=== PATIENT | male | born 1945 | race Caucasian/White ===

== ENCOUNTER 2017-04-15 18:24 | Inpatient (IN) | payer OTHER ==
[~2017-04-15] VITALS: Ht 180.3 cm; Wt 83.4 kg
[2017-04-15] VITALS (18 sets, daily range): BP systolic 120–162; BP diastolic 65–119
--- NOTE | ~2017-04-15 | S ---
[facility] [place] [address] SURGICAL PATH RPT PROCEDURE Name: PHILIP CALDERON GERMANIA Room #: 237-P ADM IN M.R.#: [id number] Admission: 04/15/17 Date of : 47 Discharge: Report #: [id number] Path Case #: [id number] PATHOLOGY REPORT COLLECTION DATE: 04/16/2017 RECEIVED DATE: 04/16/2017 SUBMITTING PHYS: Dr. Rickie Lazo OTHER PHYS: Dr. Haresh Scruggs SPECIMEN(S) RECEIVED: A.Gastritis * * * * * * * * * * * * FINAL DIAGNOSIS: Gastric mucosa, gastritis, rule out H. pylori, endoscopic biopsy: - Mild reactive gastropathy. - Negative for intestinal metaplasia or atrophy. - Negative for Helicobacter pylori. (IUV:liset; 04/19/2017) COMMENT: Well-controlled Helicobacter pylori immunohistochemical stain performed on block A1 - Negative. PATHOLOGIST: Cassidy Vides M.D. REPORT ELECTRONICALLY SIGNED BY: Cassidy Vides M.D. DATE/TIME: 04/19/2017 14:43 * * * * * * * * * * * * GROSS PATHOLOGY: Received in formalin labeled "Philip Calderon Germania, gastritis, rule out H. pylori" and consists of 2 thibodeaux-pink mucosal biopsies each averaging 0.5 cm. There are entirely submitted as A1. (ZACK; 04/16/2017) CLINICAL HISTORY: Upper GI bleed, anemia, duodenitis, esophagitis INITIAL CPT CODE(S): A; 38502, 19226 Professional services performed by [facility] at [facility] [address], [place] [address] Technical services performed by [facility] at [address] [place] [address] [place] [address] SURGICAL PATH RPT PROCEDURE Name: PHILIP CALDERON GERMANIA Room #: 237-P ADM IN M.R.#: [id number] Admission: 04/15/17 Date of : 47 Discharge: Report #: [id number] Path Case #: [id number] [place] [address]. [facility] [address] [address] PHONE: [phone] DIRECTOR: Alan Armando M.D. * * * END OF REPORT * * *
--- NOTE | ~2017-04-15 | EKG ---
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 : 1945 Requested By: Usama Richards Order Number: [id number] MD: Shabbir Toure Measurements Intervals [place] Rate: 79 P: TN: QRS: 60 QRSD: 95 T: 255 QT: 395 QTc: 453 Interpretive Statements Sinus rhythm ST depression, consider ischemia, diffuse lds vs digoxin effect Compared to ECG 03/24/2006 07:49:10 ST (T wave) deviation now present Sinus bradycardia no longer present Electronically Signed On 04-16-2017 8:15:13 SALES AND MARKETING MANAGER by Shabbir Toure [email or web address] <ELECTRONICALLY SIGNED> By: Shabbir Toure MD, [facility] 04/16/17 0815 1824 1824 Shabbir Toure MD, [facility] /EPI
--- NOTE | ~2017-04-15 | HC ---
[facility] [place] [address] CONSULTATION Name: PHILIP CALDERON GERMANIA Room #: 205-P [facility] IN M.R.#: [id number] Admission: 04/15/17 Attend Phys: Haresh Scruggs MD, Discharge: Date of : 47 Report #: [id number] THIS REPORT FOR: //name// CC: Haresh Scruggs DATE OF SERVICE: 04/19/2017 HISTORY OF PRESENT ILLNESS: The patient is a 71-year-old white male essentially almost completely blind with retinitis pigmentosa admitted with elevated troponin and ST depression, was diagnosed with an acute TX. He has chronic kidney disease, stage 4. Course was complicated by significant anemia with nausea, vomiting, coffee-ground emesis and he underwent an EGD showing severe grade D esophagitis on 04/16/2017. He has been transfused. He feels much better this morning. He continues in the Intensive Care Unit. We are seeing him in Rehabilitation Medicine consultation. PAST MEDICAL HISTORY: Includes coronary artery bypass grafting, coronary stents in , chronic renal insufficiency, ulcerative colitis for which he had an ileostomy in the . MEDICATIONS: Please see the full medication listing. FAMILY HISTORY: Noncontributory. SOCIAL HISTORY: Lives with his , tila, can stay on one floor, two steps. He did not utilize gait aids inside the house as he could get around quite well. He will use the minh cane, which is his vision cane outside the house on occasion. is retired and can be there with him. REVIEW OF SYSTEMS: Did not offer any current complaints of chest pain, shortness of breath or abdominal discomfort. No focal extremity pain complaints. PHYSICAL EXAMINATION: GENERAL: A 71-year-old white male, in no obvious distress. VITAL SIGNS: Last recorded temperature 36.9, pulse 68, respirations 16, blood pressure is 104/59. NEUROLOGIC: He is alert. He is oriented. He is legally blind. Facies appeared symmetric. Functional range of motion of both upper extremities with strength grade 4 to 4-/5. DTRs are trace to 1. Lower extremities, no focal calf swelling. Strength is grade 4 to 4-/5. DTRs are trace to 1. Tone appeared to be intact. ASSESSMENT: A 71-year-old white male with the following problems: 1. Medical complexity with generalized debilitation. 2. Acute myocardial infarction. [address] [address] CONSULTATION Name: PHILIP CALDERON GERMANIA Room #: 205-P [facility] IN .R.#: [id number] Admission: 04/15/17 Attend Phys: Haresh Scruggs MD, Discharge: Date of : 47 Report #: [id number] 3. Gastrointestinal bleed with severe grade D esophagitis per EGD, 04/16/2017. 4. Blood loss anemia. 5. Acute on chronic renal failure. 6. Chronic renal insufficiency, stage 4. 7. Retinitis pigmentosa with legally blind. 8. Past ileostomy from the 1990s. 9. Coronary artery bypass grafting and prior stenting. PLAN: OT and PT evaluations are underway. He is hoping to be able to go directly home once he further medically stabilizes and moves out of the ICU. We will need to see how he does in therapies and we will be glad to follow along with you. <ELECTRONICALLY SIGNED> By: Kamar [place] MD 04/20/17 0857 1147 2331 Kamar [place] MD /PMT
--- NOTE | ~2017-04-15 | H ---
[facility] [place] [address] HISTORY AND PHYSICAL Name: PHILIP CALDERON GERMANIA Room #: 205-P [facility] IN M.R.#: [id number] Admission: 04/15/17 Attend Phys: Haresh Scruggs MD, Discharge: 04/20/17 Date of : 47 Report #: [id number] THIS REPORT FOR: //name// CC: Dr. Zainab Scruggs DATE OF SERVICE: 04/15/2017 HISTORY OF PRESENT ILLNESS: The patient is a 71-year-old male who has flown up here from [place], [place] having some equivocal troponin and some ST depression diffusely noted in inferior lateral leads. Poor historian, unfortunately has retinitis pigmentosa. He has been at home and has not sought cardiology followup it looks like since possibly 2002. He had a bypass surgery here by somebody who covered Dr. Livingston in those days who has got sick in 1993 and subsequently had stents placed in 2002. Those records are purged currently. He used to see Dr. Alfaro remotely in [place] and Dr. Lamb now, but really sees little followup. Dr. Abdi of nephrology was following him for worsening renal function. It looks like his baseline creatinine has been in the 3s and now 4.0 here with a hemoglobin of 6.3 in [place] and a troponin, which was slightly elevated. He is no longer having chest pain, but was having progressive dyspnea, shortness of breath, and weakness. Extremely pale appearing. Heparin drip has been stopped first unit of blood is being transfused. He appears to be hemodynamically stable and denies any significant chest pain at this time. The chest x-rays down in [place] showed no acute pulmonary process. HOME MEDICATIONS: Have been isosorbide dinitrate 30 b.i.d., lisinopril 5, prednisone 5, Restoril at night, doxazosin 4, citalopram 20, atorvastatin 20, baby aspirin and Aricept. PAST MEDICAL HISTORY: Positive for coronary artery disease, CABG, stents. No interventions since 2002 with a bypass in the mid . Unknown LV function. Has had limited infarcts in the past. Chronic anemia, has been on EPO, says his last EPO shot was in December. Hemoglobin a month ago was 11 and is now 6.3, so been some sort of acute blood loss. DJD. Worsening renal function, acute on chronic renal failure. For ulcerative colitis, he had a colostomy placed in 1993. SOCIAL HISTORY: He is . He has children. He is retired. LABORATORY DATA: Here at [place] is pending. Calcium 9.2. Liver function tests were normal. Total protein 5.7. Troponin was 0.094 in [place]. H and H 6.3 and 19, white count was 9. Creatinine 4.05, BUN 98, potassium 5.2. The EKG is sinus rhythm with ST depression inferolaterally, certainly looks ischemic, but no ST elevation. REVIEW OF SYSTEMS: Is really not obtainable, nobody has noticed any dark [facility] [address] [place] [address] HISTORY AND PHYSICAL Name: PHILIP CALDERON GERMANIA Room #: 205-P DIS IN M.R.#: [id number] Admission: 04/15/17 Attend Phys: Haresh Scruggs MD, Discharge: 04/20/17 Date of : 47 Report #: [id number] stools. He has a colostomy. PHYSICAL EXAMINATION: VITAL SIGNS: Blood pressure 138/82, pulse is 78. HEENT: Eyes reveal xanthelasmas. Pharynx is clear. Slightly dry mucous membranes. He is legally blind. NECK: Shows preserved upstrokes without JVD or bruits. LUNGS: Clear anteriorly. CARDIOVASCULAR: Regular rate and rhythm. S1, S2 distant. ABDOMEN: Soft. There are bowel sounds. There is a colostomy intact. EXTREMITIES: Reveal trace edema. Distal pulses were intact. NEUROLOGIC: Nonfocal. SKIN: Warm and dry without xanthoma or ulcer. He is quite pale appearing. MUSCULOSKELETAL: No gross joint deformity. ASSESSMENT: 1. Non-ST elevation myocardial infarction. 1. Acute blood loss anemia on chronic anemia. 2. Acute on chronic renal failure. 3. Coronary artery disease with prior coronary artery bypass graft and stents, 1993 bypass and 2002 stents, no records obtained. 4. Suspected ischemic cardiomyopathy. 5. Hypertension. 6. Hypercholesterolemia. RECOMMENDATIONS AND PLAN: We will admit to the Intensive Care Unit. Currently being transfused first unit of blood. He is comfortable and pain free. Heparin has been stopped. No indication to run in emergently to the catheterization lab. He is stabilized and pain free. I expect an elevation in troponin to occur. We will obtain echo Doppler, repeat EKG, serial enzymes. We will ask for nephrology consult. Continue with transfusion and IV Lasix between units. We will also add a BNP. BUN, we will repeat, his creatinine is 4. Hemoglobin is 7.01, our lab here. We will continue to follow with you. Thank you for asking me to assist in the care of this patient. <ELECTRONICALLY SIGNED> By: Haresh Scruggs MD, [facility] 04/21/17 1455 1856 32 Haresh Scruggs MD, FACC /nt
--- NOTE | ~2017-04-15 | P ---
[facility] [place] [address] PROCEDURE REPORT Name: PHILIP CALDERON GERMANIA Room #: 205-P [facility] IN M.R.#: [id number] Admission: 04/15/17 Attend Phys: Haresh Scruggs MD, Discharge: 04/20/17 Date of : 47 Report #: [id number] THIS REPORT FOR: //name// CC: Haresh Scruggs MD [facility] DATE OF SERVICE: 04/16/2017 PROCEDURE PERFORMED: Upper endoscopy with biopsies. HISTORY OF PRESENT ILLNESS: The patient is a 71-year-old male with recent abdominal pain, shortness of breath, was noted to be significantly anemic at [facility]. He has now received 3 units of packed cells. Hemoglobin at this time is 8.6. He had an episode of coffee-ground emesis with clots reportedly. No previous history of upper GI bleed. He was taking aspirin on a regular basis. Plan is for EGD. DESCRIPTION OF PROCEDURE: The risks and benefits of the procedure were explained to the patient, those risks including but not limited to bleeding, perforation and the risk of sedation. He understood these risks and gave informed consent. Sedation was given using propofol per anesthesia. Next, using a standard Me!Box Median upper endoscope, the scope was placed in the patient's mouth and advanced under direct vision through the esophagus, stomach and into the second portion of the duodenum. The upper-mid esophagus was normal in appearance. In the distal esophagus, there was severe grade D erosive esophagitis with multiple ulcerations consistent with reflux esophagitis. There was also a black eschar near the GE junction, likely site of recent bleeding. There was no fresh clot or visible vessel. Upon entering the stomach, a small hiatal hernia was noted. Overall, the gastric mucosa was normal. The pylorus was normal and patent. The duodenal bulb and first portion showed a mild duodenitis. No evidence of bleeding. The second portion of the duodenum was normal. The scope was then brought back up into the patient's stomach and biopsies were obtained to rule out the possibility of H. pylori. The scope was then withdrawn and the procedure terminated. The patient tolerated the procedure well. IMPRESSION: 1. Severe grade D erosive esophagitis, likely source of recent bleed. The patient has a black eschar at the gastroesophageal junction. 2. Mild duodenitis. 3. Small hiatal hernia. RECOMMENDATIONS: 1. Await biopsy results. 2. Continue Protonix drip today. 3. We will add Carafate suspension. [address] [address] PROCEDURE REPORT Name: PHILIP CALDERON GERMANIA Room #: 205-P DIS IN M.R.#: [id number] Admission: 04/15/17 Attend Phys: Haresh Scruggs MD, Discharge: 04/20/17 Date of : 47 Report #: [id number] 4. Continue to monitor hemoglobin closely. Thank you for allowing me to participate in his care. <ELECTRONICALLY SIGNED> By: Rickie Lazo MD 04/21/17 0914 1240 2049 Rickie Lazo MD /nt
--- NOTE | ~2017-04-15 | D ---
[facility] [place] [address] DISCHARGE SUMMARY Name: YUMIKOPHILIP GERMANIA Room #: 205-P [facility] IN M.R.#: [id number] Admission: 04/15/17 Attend Phys: Haresh Scruggs MD, Discharge: 04/20/17 Date of : 47 Report #: [id number] THIS REPORT FOR: //name// CC: Dr. Zainab Scruggs [facility]RSE: The patient is a 71-year-old male who was brought from [place], [place] having unstable angina and subsequently had a non-STEMI. Very complicated history with end-stage renal disease, although not on dialysis and severe anemia. Subsequently, found that to be due to erosive gastritis and esophagitis. He was seen by GI and scoped. He had received transfusions. With the blood and medications, he has improved with regards to any recurrent chest pain or angina. In fact, there has been none. His hemoglobin is stable at 7.9, we have now watched this for 3 days. He is on Protonix 40 a day and Carafate q.i.d. He is blind due to retinitis pigmentosa and has had no followup with Cardiology since the original stents were placed. He had also had bypass surgery in 1993 and then stents placed in 2002. Really lost to Cardiology followup. For clarification. He will be discharged to home, Imdur 30, Toprol 25. No aspirin, no lisinopril. Celexa 20 mg, Lipitor 20, metoprolol 25, Protonix 40, and Carafate q.i.d. The patient is scheduled for trying to treat conservatively here with the bleed and the creatinine, so no catheterization was performed. He is scheduled for nuclear stress test in my office on 05/04. Barring a significant area of ischemia, I would continue to treat this with medical therapy. They are not interested in very aggressive treatment here. However, with limited contrast and once there is healing of this gastritis and esophagitis, could give some consideration to percutaneous coronary intervention if indicated. They have home health coming, they live in [place], [place]. Long discussion with and the patient. DISCHARGE DIAGNOSES: 1. Non-ST elevation myocardial infarction. 2. End-stage renal disease. 3. Hypertension. 4. Hypercholesterolemia. 5. Acute blood loss anemia secondary to esophagitis and gastritis (which precipitated the angina, non-ST elevation myocardial infarction). Follow up in [place]. He had previous with Dr. Lamb. Thank you for assisting in care of this patient. <ELECTRONICALLY SIGNED> By: Haresh Scruggs MD, FACC 04/21/17 1456 0859 0940 Haresh Scruggs MD, FACC /nt
--- NOTE | ~2017-04-15 | EKG ---
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: : 1945 Requested By: Haresh Scruggs Order Number: [id number] MD: Shabbir Toure Measurements Intervals [place] Rate: 83 P: 77 DC: 154 QRS: -11 QRSD: 101 T: 66 QT: 375 QTc: 441 Interpretive Statements Sinus rhythm Borderline low voltage, extremity leads Nonspecific repol abnormality, diffuse leads Compared to ECG 03/24/2006 07:49:10 No significant change was found Electronically Signed On 04-16-2017 8:35:23 POWDER PRESS OPERATOR by Shabbir Toure [email or web address] <ELECTRONICALLY SIGNED> By: Shabbir Toure MD, [facility] 04/16/17 0835 0729 0729 Shabbir Toure MD, [facility] /EPI
--- NOTE | ~2017-04-15 | EKG ---
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
--- NOTE | ~2017-04-15 | 2DMMODE ---
[facility] [address] [place] [address] 2 D/M-MODE ECHOCARDIOGRAM Name: PHILIP CALDERON GERMANIA Room #: 237-P [facility] IN M.R.#: [id number] Admission: 04/15/17 Attend Phys: Haresh Scruggs, Discharge: Date of : 47 Date of Service: 04/16/17 1151 Report #: [id number] THIS REPORT FOR: //name// APPROVED REPORT Study performed: 04/16/2017 08:18:12 EXAM: Comprehensive 2D, Doppler, and color-flow Echocardiogram Patient Location: ICU Room #: [facility] Status: routine BSA: 2.03 HR: 84 bpm BP: 113/69 mmHg Other Information Study Quality: Adequate Indications CAD Chest Pain Hypertension/HDD 2D Dimensions LVEF(%): 39.61 (>50%) IVSd: 9.82 (7-11mm) LVOT Diam: 20.16 (18-24mm) LVDd: 53.93 mm PWd: 9.74 (7-11mm) Ascending Ao: 28.53 (22-36mm) LVDs: 43.44 (25-40mm) Aortic Root: 28.96 mm IVC: 14.00 mm Senior's LVEF: 39.61 % Volumes Left Atrial Volume (Systole) Single Plane 4CH: 86.04 mL Single Plane 2CH: 59.99 mL LA ESV Index: 38.00 mL/m2 Aortic Valve AoV Peak Michael.: 1.42 m/s AO Peak Gr.: 8.04 mmHg LVOT Max P.05 mmHg LVOT Max V: 1.12 m/s KRISTIN Vmax: 2.53 cm2 Mitral Valve E/A Ratio: 0.8 [facility] [place] [address] [address] [place] [address] 2 D/M-MODE ECHOCARDIOGRAM Name: PHILIP CALDERON GERMANIA Room #: 237-P [facility] IN .R.#: [id number] Admission: 04/15/17 Attend Phys: Haresh Scruggs, Discharge: Date of : 47 Date of Service: 04/16/17 1151 Report #: [id number] MV Decel. Time: 330.63 ms MV E Max Michael.: 0.66 m/s MV A Michael.: 0.82 m/s MV PHT: 95.88 ms IVRT: 110.73 ms Pulmonary Valve PV Peak Michael.: 1.13 m/s PV Peak Gr.: 5.13 mmHg Pulmonary Vein P Vein S: 0.73 m/s P Vein A: 0.26 m/s P Vein D: 0.42 m/s P Vein A Dur.: 92.3 msec P Vein S/D Ratio: 1.74 Tricuspid Valve TR Peak Michael.: 2.51 m/s TR Peak Gr.: 25.16 mmHg PA Pressure: 35.00 mmHg Left Ventricle The left ventricle is normal size. There is hypokinesis in the inferior and inferoapical branham. There is normal left ventricular wall thickness. Left ventricular systolic function is mild-moderately decreased. LVEF is 40-45%. Grade I - abnormal relaxation pattern. Right Ventricle The right ventricle is normal size. The right ventricular systolic function is normal. Atria Left atrium is dilated. The right atrium size is normal. Aortic Valve The aortic valve is normal in structure. Trace aortic regurgitation. There is no aortic valvular stenosis. Mitral Valve The mitral valve is normal in structure. Mild mitral regurgitation. No evidence of mitral valve stenosis. Tricuspid Valve The tricuspid valve is normal in structure. There is trace tricuspid regurgitation. Estimated PAP 35 mmHg. There is mild pulmonary hypertension. [address] [address] 2 D/M-MODE ECHOCARDIOGRAM Name: PHILIP CALDERON GERMANIA Room #: 237-P [facility] IN .R.#: [id number] Admission: 04/15/17 Attend Phys: Haresh Scruggs, Discharge: Date of : 47 Date of Service: 04/16/17 1151 Report #: [id number] Pulmonic Valve The pulmonary valve is normal in structure. Trace pulmonic regurgitation. Great Vessels The aortic root is normal in size. IVC is normal in size and collapses <50% with inspiration. Pericardium There is no pericardial effusion. <Conclusion> Left ventricular systolic function is mild-moderately decreased. There is hypokinesis in the inferior and inferoapical branham. LVEF is 40-45%. Grade I diastolic dysfunction Left atrium is dilated. The aortic valve is normal in structure. Trace aortic regurgitation, no stenosis. The mitral valve is normal in structure. Mild mitral regurgitation. There is trace tricuspid regurgitation. Estimated PAP 35 mmHg. There is no pericardial effusion. <ELECTRONICALLY SIGNED> By: Shabbir Toure MD, FACC 04/16/17 1151 1151 1151 Shabbir Toure MD, FACC /INF
--- NOTE | ~2017-04-15 | EKG ---
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 Compared to ECG 04/16/2017 07:29:47 Possible ischemia now present Electronically Signed On 04-17-2017 13:30:00 WHEEL PRESSER by Clint White [email or web address] <ELECTRONICALLY SIGNED> By: Clint White MD 04/17/17 1330 0749 0749 Clint White MD /ERICKA
--- NOTE | ~2017-04-15 | HC ---
[facility] [place] [address] CONSULTATION Name: PHILIP CALDERON GERMANIA Room #: 205-P [facility] IN M.R.#: [id number] Admission: 04/15/17 Attend Phys: Haresh Scruggs MD, Discharge: 04/20/17 Date of : 47 Report #: [id number] THIS REPORT FOR: //name// CC: Haresh Scruggs DATE OF SERVICE: 04/16/2017 REASON FOR CONSULTATION: Elevated creatinine. REASON FOR PRESENTATION: [facility] from another facility for cardiac related issues. HISTORY OF PRESENT ILLNESS: This is a 71-year-old who suffers from chronic kidney disease. He was in a [facility] facility yesterday. 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 He has known CABG history. His health has ever since been declining. 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 He sees Dr. Abdi with [facility] facility for chronic kidney disease and has a baseline creatinine of around 3.7-4. He last saw him in December and he was receiving erythropoietin. Dialysis has been declined because of the patient's comorbid conditions including his CABG, his recent colostomy for ulcerative colitis. He presented to that facility complaining of chest pain. Initial troponin was 0.2. However, because of the elevated troponin, he was transferred for further evaluation and management. He had an episode of melena. He was found to be anemic with hemoglobin of 7 here when he presented and it was lower than that in the other facility. I am being asked to manage his chronic kidney disease. PAST MEDICAL HISTORY: Extensive including the followin. Coronary artery disease. 2. Status post CABG. 3. Stent placement 4. Chronic kidney disease. 5. Retinitis pigmentosa. 6. Ulcerative colitis. 7. Status post colostomy, diseased with multiple revisions. 8. Hyperlipidemia. MEDICATIONS: 1. Isosorbide dinitrate: 2. Lisinopril. 3. Citalopram. 4. Atorvastatin. 5. Aspirin. SOCIAL HISTORY: He is and lives with his . [facility] [address] [place] [address] CONSULTATION Name: PHILIP CALDERON GERMANIA Room #: 205-P [facility] IN M.R.#: [id number] Admission: 04/15/17 Attend Phys: Haresh Scruggs MD, Discharge: 04/20/17 Date of : 47 Report #: [id number] REVIEW OF SYSTEMS: GENERAL: No fever or chills. CARDIOVASCULAR: As per history of present illness. PULMONARY: As per the history of present illness. GASTROINTESTINAL: Decreased p.o. intake. GENITOURINARY: No frequency, no urgency. MUSCULOSKELETAL: Limited mobility. PHYSICAL EXAMINATION: GENERAL: Alert, oriented, lethargic. VITAL SIGNS: Blood pressure 166/96. HEAD AND NECK: No jugular venous distention. CHEST: Clear to auscultation bilaterally. CARDIOVASCULAR: Regular with no rub. ABDOMEN: Colostomy present with multiple scars. LOWER EXTREMITIES: No edema. LABORATORY VALUES: Reviewed. Hemoglobin is up to 8.6, status post transfusion; platelet 145. BUN is 90; creatinine 3.7, down from 4. AST is elevated. Troponin is up to 50.8. Albumin is low at 2.6. ASSESSMENT, IMPRESSION, PLAN: 1. Chronic kidney disease. 2. Non-ST elevated myocardial infarction in a patient who is known to have coronary artery disease. 3. Status post coronary artery bypass graft. 4. Status post colostomy. 5. Gastrointestinal bleeding. 6. Retinitis pigmentosa. 7. From the renal perspective, this patient seems to be at his baseline. 8. I will contact his land use planner and obtain the most recent workup. 9. Anemia workup including anemia studies. 10. GI consultation. 11. Discussed with Dr. Scruggs. 12. Hold any anticoagulation for now. 13. We will decide about resumption of his erythropoietin once I get the iron studies. 14. Blood pressure seems to be stable and as for now, continue with the current medications including beta catherine and statin. Hold JESSI inhibitor for now. 15. We will have to be realistic considering his comorbid conditions and issues. I will have to discuss with his how aggressive do they want us to be with his care given his comorbid conditions. [address] [address] CONSULTATION Name: PHILIP CALDERON GERMANIA Room #: 205-P [facility] IN M.R.#: [id number] Admission: 04/15/17 Attend Phys: Haresh Scruggs MD, Discharge: 04/20/17 Date of : 47 Report #: [id number] 16. GI is following and deciding about whether to proceed with EGD and/or colonoscopy. <ELECTRONICALLY SIGNED> By: Oni Roach MD 04/26/17 [id number] Oni Roach MD /nt
[2017-04-15 18:44] LABS: ABSOLUTE NEUTROPHILS 7.8 thou/uL (1.4-8.2); BASOPHILS 0.9 % (0.0-2.0); EOSINOPHILS 0.8 % (0.0-3.0); HEMATOCRIT 20.6 % (42.0-52.0); MCH 29.7 pg (26.0-34.0); MCHC 34.2 g/dL (28.0-37.0); MCV 86.8 fL (80.0-100.0); MONOCYTES 5.3 % (1.0-8.0); PLATELET COUNT 154 thou/uL (150-400); RBC 2.37 mil/uL (4.50-6.00); RDW 15.6 % (10.5-14.5); WBC 8.9 thou/uL (4.0-11.0)
[2017-04-15 18:53] LABS: POTASSIUM 4.9 mmol/L (3.5-5.1)
[2017-04-15 19:02] LABS: ALBUMIN 2.9 g/dL (3.4-5.0); TOTAL BILIRUBIN 0.4 mg/dL (<0.1-1.0); TOTAL PROTEIN 5.6 g/dL (6.4-8.2); TROPONIN-I 0.22 ng/mL (<0.06)
[2017-04-15] MEDS ORDERED: NORVASC10 MG PO (19:02)
[2017-04-15] MEDS ORDERED: LIPITOR 20 MG T20 M1 PO (19:02)
[2017-04-15] MEDS ORDERED: CHILDREN'S ASPI81 M1 PO (19:02)
[2017-04-15] MEDS ORDERED: CARDURA4 MG PO (19:03)
[2017-04-15] MEDS ORDERED: CELEXA20 MG PO (19:03)
[2017-04-15] MEDS ORDERED: IMDUR 30 MG TAB30 M1 PO (19:04)
[2017-04-15] MEDS ORDERED: LISINOPRIL5 MG PO (19:04)
[2017-04-15] MEDS ORDERED: RESTORIL15 MG PO (19:05)
[2017-04-16] VITALS (24 sets, daily range): BP systolic 98–166; BP diastolic 51–96
[2017-04-16 05:55] LABS: HEMATOCRIT 25.1 % (42.0-52.0); HEMOGLOBIN 8.6 gm/dL (14.0-18.0); MCH 29.2 pg (26.0-34.0); MCHC 34.2 g/dL (28.0-37.0); MCV 85.3 fL (80.0-100.0); RBC 2.94 mil/uL (4.50-6.00); RDW 15.6 % (10.5-14.5)
[2017-04-16 06:07] LABS: ALBUMIN 2.7 g/dL (3.4-5.0); CALCIUM 9.1 mg/dL (8.5-10.1); CREATININE 3.7 mg/dL (0.7-1.3); POTASSIUM 5.1 mmol/L (3.5-5.1); TOTAL BILIRUBIN 0.6 mg/dL (<0.1-1.0); TOTAL PROTEIN 5.5 g/dL (6.4-8.2)
[2017-04-16 06:54] LABS: TROPONIN-I 50.84 ng/mL (<0.06)
[2017-04-16 12:47] LABS: HEMATOCRIT 25.1 % (42.0-52.0); HEMOGLOBIN 8.6 gm/dL (14.0-18.0)
[2017-04-17] VITALS (20 sets, daily range): BP systolic 79–140; BP diastolic 47–94
[2017-04-17 05:24] LABS: HEMATOCRIT 23.6 % (42.0-52.0); MCH 29.3 pg (26.0-34.0); RBC 2.74 mil/uL (4.50-6.00); RDW 16.3 % (10.5-14.5); WBC 6.4 thou/uL (4.0-11.0)
[2017-04-17 05:37] LABS: CALCIUM 8.7 mg/dL (8.5-10.1); CREATININE 3.6 mg/dL (0.7-1.3); POTASSIUM 5.3 mmol/L (3.5-5.1)
[2017-04-17 05:38] LABS: % SATURATION 14 % (20-39); IRON 31 ug/dL (65-175); TIBC 216 ug/dL (250-450)
[2017-04-18 00:06] VITALS: BP 100/53
[2017-04-18 04:00] VITALS: BP 105/71
[2017-04-18 05:41] LABS: HEMATOCRIT 23.1 % (42.0-52.0); HEMOGLOBIN 7.8 gm/dL (14.0-18.0); MCH 29.1 pg (26.0-34.0); MCHC 33.6 g/dL (28.0-37.0); MCV 86.6 fL (80.0-100.0); RBC 2.67 mil/uL (4.50-6.00); RDW 15.5 % (10.5-14.5); WBC 5.3 thou/uL (4.0-11.0)
[2017-04-18 06:02] LABS: ALBUMIN 2.4 g/dL (3.4-5.0); CALCIUM 8.6 mg/dL (8.5-10.1); CREATININE 3.4 mg/dL (0.7-1.3); PHOSPHORUS 3.2 mg/dL (2.5-4.9); POTASSIUM 5.4 mmol/L (3.5-5.1)
[2017-04-18 08:00] VITALS: BP 103/58
[2017-04-18 12:00] VITALS: BP 93/61
[2017-04-18 16:00] VITALS: BP 116/64
[2017-04-18 20:00] VITALS: BP 124/68
[2017-04-19 00:01] VITALS: BP 113/64
[2017-04-19 04:00] VITALS: BP 89/53
[2017-04-19 05:38] LABS: HEMOGLOBIN 7.7 gm/dL (14.0-18.0)
[2017-04-19 08:00] VITALS: BP 104/59
[2017-04-19 12:00] VITALS: BP 115/74
[2017-04-19] MEDS ORDERED: ARANESP100 MCG/1 SUBQ (16:27)
[2017-04-19 17:21] VITALS: BP 140/87
[2017-04-19 20:10] VITALS: BP 133/63
[2017-04-20 04:30] VITALS: BP 114/55
[2017-04-20 05:03] LABS: ALBUMIN 2.7 g/dL (3.4-5.0); CALCIUM 8.7 mg/dL (8.5-10.1); CREATININE 3.5 mg/dL (0.7-1.3); PHOSPHORUS 3.2 mg/dL (2.5-4.9); POTASSIUM 5.1 mmol/L (3.5-5.1)
[2017-04-20] MEDS ORDERED: METOPROLOL SUCC25 M1 PO (07:45)
[2017-04-20] MEDS ORDERED: CARAFATE 11 GM/10 M1 PO (07:45)
[2017-04-20] MEDS ORDERED: PANTOPRAZOLE SO40 M1 PO (07:45)
[2017-04-20] MEDS ORDERED: SODIUM BICARBO650 M3 PO (07:47)
[2017-04-20 07:55] LABS: HEMATOCRIT 23.4 % (42.0-52.0); HEMOGLOBIN 7.9 gm/dL (14.0-18.0); MCH 29.4 pg (26.0-34.0); MCHC 33.9 g/dL (28.0-37.0); MCV 86.7 fL (80.0-100.0); RBC 2.7 mil/uL (4.50-6.00); RDW 15.5 % (10.5-14.5); WBC 5.6 thou/uL (4.0-11.0)
[2017-04-20] MEDS ORDERED: IMDUR 30 MG TAB30 M1 PO (08:02)
[2017-04-20 08:36] VITALS: BP 114/55
[2017-04-20 08:42] VITALS: BP 118/62
[2017-04-20 08:46] VITALS: BP 114/55
[2017-04-20 10:36] VITALS: BP 114/55
== END 2017-04-20 12:03 | disposition home health service (06) | DRG 280 ==
LOC: ER 18:24 → EROBS 19:12 → ICU 19:12 → 2N 04-19 17:16 → TBA 04-19 18:19 → 2N 04-19 18:20 → ENTRNSPT 04-20 11:54 → EDTRNSPTSTS 04-20 11:57 → 2N 04-20 12:03
PROVIDERS: Emergency Medicine; Hospitalist; Internal Medicine Cardiovascular Disease; Internal Medicine Nephrology; Nurse Practitioner Adult Health
PROC: 30233N1 Transfusion of Nonautologous Red Blood Cells into Peripheral Vein, Percutaneous Approach (ICD-10-PCS; 2017-04-15)
PROC: 0DB68ZX Excision of Stomach, Via Natural or Artificial Opening Endoscopic, Diagnostic (ICD-10-PCS; principal; 2017-04-16)
DX: I21.4 Non-ST elevation (NSTEMI) myocardial infarction (principal); K29.71 Gastritis, unspecified, with bleeding; N18.6 End stage renal disease; K29.81 Duodenitis with bleeding; N17.9 Acute kidney failure, unspecified; I12.0 Hypertensive chronic kidney disease with stage 5 chronic kidney disease or end stage renal disease; D62 Acute posthemorrhagic anemia; K51.90 Ulcerative colitis, unspecified, without complications; D64.9 Anemia, unspecified; E78.5 Hyperlipidemia, unspecified; H35.52 Pigmentary retinal dystrophy; E78.00 Pure hypercholesterolemia, unspecified; I25.119 Atherosclerotic heart disease of native coronary artery with unspecified angina pectoris; K44.9 Diaphragmatic hernia without obstruction or gangrene; H54.7 Unspecified visual loss; K20.8 Other esophagitis; R53.81 Other malaise; Z95.1 Presence of aortocoronary bypass graft; Z79.82 Long term (current) use of aspirin; Z79.899 Other long term (current) drug therapy; Z95.5 Presence of coronary angioplasty implant and graft
CPT/HCPCS: 10078; 10797; 62110; 62900; 70005